=== PATIENT | female | born 1985 | race Hispanic/Latino ===

== ENCOUNTER 2019-08-11 21:31 | Inpatient (IN) | payer BC ==
[2019-08-11 22:20] VITALS: BMI 38.4
[2019-08-11] MEDS: Lactated Ringer's 1,000 ML IV SCH (23:10)
[2019-08-11] MEDS ORDERED: Penicillin G Potassium 5 MILL.UNITS VIAL ONE (23:27)
[2019-08-11] MEDS ORDERED: Butorphanol Tartrate 1 MG/ML VIAL SLOW IVP PRN (23:47)
[2019-08-11] MEDS ORDERED: NS w/ Oxytocin 10 units 500 ML IV SCH (23:47)
[2019-08-11] MEDS ORDERED: Ondansetron PF 4 MG/2 ML Vial IVP PRN (23:47)
[2019-08-11] MEDS ORDERED: Promethazine HCl 25 MG/ML VIAL IM PRN (23:47)
[2019-08-11] MEDS ORDERED: Lactated Ringer's 1,000 ML IV SCH (23:47)
[2019-08-11] MEDS ORDERED: Lidocaine 1% (PF) 30 ML VIAL SC PRN (23:47)
[2019-08-11] MEDS ORDERED: NS / Oxytocin 40 units/1000ml 1,000 ML IV PRN (23:47)
[2019-08-11] MEDS ORDERED: HYDROcodone/Acetaminophen 5/325 mg Tablet PO PRN ×2 (23:47)
[2019-08-11] MEDS ORDERED: Ibuprofen 800 MG TAB PO PRN (23:47)
[2019-08-11] MEDS ORDERED: hydrALAZINE 20 MG/ML VIAL SLOW IVP PRN (23:47)
[2019-08-11] MEDS ORDERED: Penicillin G Potassium 5 MILL.UNITS in Sodium Chloride 0.9% 100 ML IVPB SCH (23:59)
[2019-08-12 00:09] LABS: Hemoglobin 12.9 g/dL (12.0-16.0); Mean Corpuscular HGB CONC 34.5 g/dL (32.0-36.0); Mean Corpuscular Hemoglobin 35.3 pg (27.0-31.0); Mean Platelet Volume 9.3 fL (7.4-10.4); Platelet Count 113 thou/uL (130-400); RBC Distribution Width 12.9 % (11.5-14.5); Red Blood Cell (RBC) Count 3.65 mill/uL (4.20-5.40); White Blood Cell (WBC) Count 10.6 thou/uL (4.8-10.8)
[2019-08-12 00:34] LABS: Syphilis Antibody Nonreactive (Nonreactive); Syphilis Antibody Index 0.04 S/CO (<1.00 Non-Reactive)
[2019-08-12 00:35] LABS: HBSAg Index 0.17 S/CO (0-0.99); Hep B Surf Ag Non-Reactive S/CO (NonReactive)
[2019-08-12] MEDS: Penicillin G 2.5 MILL.units 2.5 MILL.UNITS in Premix Bag 1 BAG IVPB SCH ×5 (04:00→19:32)
[2019-08-12] MEDS ORDERED: Fentanyl 4 mcg/Bup 0.1% Cadd 100 ML ONE (06:47)
[2019-08-12] MEDS ORDERED: Bupivacaine 0.5% 10 ML VIAL ONE (07:16)
[2019-08-12] MEDS ORDERED: Fentanyl 100 MCG/2 ML VIAL ONE (07:16)
[2019-08-12] MEDS: Lactated Ringer's 1,000 ML IV SCH ×2 (07:58→19:34)
[2019-08-12] MEDS ORDERED: Bupivacaine 0.25% 10 ML VIAL FS SCH (08:03)
[2019-08-12] MEDS ORDERED: Fentanyl 100 MCG/2 ML VIAL I-THECAL SCH (08:03)
[2019-08-12] MEDS ORDERED: ePHEDrine/0.9% NaCl/PF SYRINGE 50 mg/10 ml SLOW IVP PRN (08:04)
[2019-08-12] MEDS ORDERED: diphenhydrAMINE 50 MG/ML VIAL IVP PRN (08:04)
[2019-08-12] MEDS ORDERED: Ondansetron PF 4 MG/2 ML Vial IVP PRN ×2 (08:04→17:46)
[2019-08-12] MEDS ORDERED: Promethazine HCl 25 MG/ML VIAL IM PRN (08:04)
[2019-08-12] MEDS ORDERED: Naloxone HCl 0.4 mg/ml Vial IVP PRN ×2 (08:04)
[2019-08-12] MEDS ORDERED: Acetaminophen 325 MG TAB PO PRN (08:04)
[2019-08-12] MEDS ORDERED: Lactated Ringer's 500 ML IV PRN (08:04)
[2019-08-12] MEDS ORDERED: Fentanyl 4 mcg/Bupivacaine 0.1% Cassette 100 ML EPIDURAL SCH (08:15)
[2019-08-12] MEDS ORDERED: Communication Order-Pharmacy FS SCH (08:15)
[2019-08-12] MEDS ORDERED: Dexamethasone 4 mg/ml Vial SLOW IVP SCH (08:30)
--- NOTE | 2019-08-12 08:32 | PDOC.LDHP ---
Labor and Delivery H&P Chief complaint: contractions HPI: Pt presents for contractions overnight. Regular contractions with cervical change noted. Hx of low platelets in , unclear ITP vs GTP. On oral prednisone 10-20mg a day for about 2 weeks. Current gestational age (weeks): 38 Due date: 08/23/19 Grav: 1 Para: 0 OB History Details: ITP vs GTP Current complications: other (low platelets, resolved at admission with oral steriods) Current medications: pre-tricia vitamins, other (prednisone 20mg a day) Previous surgical history: none Allergies/Adverse Reactions: Allergies Allergy/AdvReac Type Severity Reaction Status Date / Time No Known Allergies Allergy Verified 08/11/19 22:06 Social history: none - Physical Exam Vital signs reviewed and normal: yes General: NAD Heart: RRR Lungs: CTAB Abdomen: gravid Extremeties: no edema FHT: category 1 - Vaginal Exam cm dilated: 6 Effacement: 90% Station: -1 - OB Labs Blood type: B RH: positive Antibody Screen: negative HIV: negative RPR: negative HEPSAg: negative 1 hour GCT: positive GBS: positive Rubella: immune - Assessment L&D Assessment: term patient in labor - Plan Plan: admit to L&D, labor augmentation if indicated, GBS antibiotic prophylaxis , informed consent obtained, anesthesia consult for pain management -: A/P: Admit for labor, AROM on exam with clear fluid after abx x 2. Platelets 115. Stress dose steroids ordered, will notify nursery ITP vs GTP for follow up. FHT reassuring, anticipate .
[2019-08-12] MEDS ORDERED: NS / Oxytocin 40 units/1000ml 1,000 ML ONE ×2 (10:30→10:31)
[2019-08-12] MEDS ORDERED: Milk Of Magnesia 30 ML UDCUP PO PRN (17:46)
[2019-08-12] MEDS ORDERED: Lanolin Ointment 7 GM TUBE TOP PRN (17:46)
[2019-08-12] MEDS ORDERED: hydrALAZINE 20 MG/ML VIAL SLOW IVP PRN (17:46)
[2019-08-12] MEDS ORDERED: NS / Oxytocin 40 units/1000ml 1,000 ML IV SCH (17:46)
[2019-08-12] MEDS ORDERED: Bisacodyl 10 MG SUPP PR PRN (17:46)
[2019-08-12] MEDS: Docusate Calcium (SURFAK) 240 MG CAP PO SCH (21:28)
[2019-08-12] MEDS: Ibuprofen 800 MG TAB PO SCH (21:28)
[2019-08-12] MEDS ORDERED: HYDROcodone/Acetaminophen 5/325 mg Tablet PO PRN (22:08)
--- NOTE | 2019-08-12 22:17 | DN ---
DATE OF PROCEDURE: 08/12/2019 The patient delivered a male infant on 08/12/2019 at 1450 hours by an uncomplicated term spontaneous vaginal delivery at 38 weeks and 3 days gestation. Apgars were 8 and 9. Delivery weight was unavailable at the time of dictation. Placenta delivered spontaneously followed by Pitocin infusion. Quantitative blood loss was 675 mL. There was a small second-degree laceration repaired in the usual fashion. Dr. Ge is the delivering physician. Mother and baby are in the room, stable in the immediate . Counts were correct. Job ID: [id number]
[2019-08-13] MEDS: Penicillin G 2.5 MILL.units 2.5 MILL.UNITS in Premix Bag 1 BAG IVPB SCH (01:17)
[2019-08-13] MEDS ORDERED: Benzocaine-Menthol 82.5 ML CAN TOP PRN (05:36)
[2019-08-13] MEDS: Ibuprofen 800 MG TAB PO SCH ×3 (06:03→21:22)
--- NOTE | 2019-08-13 08:17 | PRG ---
DATE OF SERVICE: 08/13/2019 SUBJECTIVE: The patient is day 1, status post a term spontaneous vaginal delivery. The patient reports she is tolerating p.o., voiding on her own, having decreased lochia and good pain control. OBJECTIVE: VITAL SIGNS: This morning; blood pressure 109/75, temperature 98.1, pulse is 77, and respiratory rate of 18. GENERAL: She appears to be in no acute distress. She is alert and oriented, cooperative and pleasant to interact with. HEENT: Head is normocephalic and atraumatic. Fundus is firm. EXTREMITIES: Nontender. Nonedematous. LABORATORY DATA: CBC is pending. ASSESSMENT AND PLAN: The patient is a 34-year-old female, status post term spontaneous vaginal delivery at 37 weeks for gestational thrombocytopenia, on prednisone. The patient will continue with her prednisone 20 mg daily and can follow up with her primary OB for taper. We will anticipate discharge tomorrow. Job ID: [id number]
[2019-08-13] MEDS ORDERED: Adacel (T-DAP) 0.5 ML SYRINGE IM ONE (09:00)
[2019-08-13 09:01] LABS: #Eosinphils 0.1 thou/uL (0.0-0.7); #Lymphocytes 2.6 thou/uL (1.20-3.40); #Monocytes 0.7 thou/uL (0.11-0.59); #Neutrophils 10.3 thou/uL (1.40-6.50); %Eosinophils 0.5 % (0.0-10.0); %Lymphocytes 18.8 % (21.0-51.0); %Monocytes 5.2 % (0.0-10.0); %Neutrophils 75.6 % (42.0-75.0); Hemoglobin 9.9 g/dL (12.0-16.0); Mean Corpuscular HGB CONC 35.9 g/dL (32.0-36.0); Mean Corpuscular Hemoglobin 37.5 pg (27.0-31.0); Mean Platelet Volume 8.7 fL (7.4-10.4); Platelet Count 62 thou/uL (130-400); Platelet Morphology Comment Appears Decreased; RBC Distribution Width 12.9 % (11.5-14.5); RBC Morphology Normal; Red Blood Cell (RBC) Count 2.65 mill/uL (4.20-5.40); White Blood Cell (WBC) Count 13.6 thou/uL (4.8-10.8)
[2019-08-13] MEDS: Ferrous Sulfate 325 MG TAB PO SCH ×2 (09:39→18:48)
[2019-08-13] MEDS: Docusate Calcium (SURFAK) 240 MG CAP PO SCH ×2 (10:27→21:22)
[2019-08-13] MEDS: Prenatal Vitamin 1 TAB PO SCH (10:27)
[2019-08-13] MEDS: predniSONE 20 MG TAB PO SCH (10:27)
[2019-08-13 18:48] VITALS: TEMP 98.5
[2019-08-14] MEDS: Ibuprofen 800 MG TAB PO SCH ×2 (05:33→14:28)
[2019-08-14 06:46] LABS: #Eosinphils 0.1 thou/uL (0.0-0.7); #Monocytes 0.6 thou/uL (0.11-0.59); #Neutrophils 7.8 thou/uL (1.40-6.50); %Basophils 0.2 % (0.0-1.0); %Eosinophils 0.9 % (0.0-10.0); %Lymphocytes 26.2 % (21.0-51.0); %Monocytes 5.4 % (0.0-10.0); %Neutrophils 67.3 % (42.0-75.0); Hemoglobin 9.5 g/dL (12.0-16.0); Mean Corpuscular HGB CONC 34.5 g/dL (32.0-36.0); Mean Corpuscular Hemoglobin 35.9 pg (27.0-31.0); Mean Platelet Volume 8.8 fL (7.4-10.4); Platelet Count 61 thou/uL (130-400); RBC Distribution Width 12.9 % (11.5-14.5); Red Blood Cell (RBC) Count 2.65 mill/uL (4.20-5.40); White Blood Cell (WBC) Count 11.5 thou/uL (4.8-10.8)
--- NOTE | 2019-08-14 06:49 | PDOC.PP ---
Post Progress Note Post Day #: 2 Subjective: Patient doing well. No significant overnight events. Patient denies N/V, chest pain, shortness of breath, palpitations. Lochia minimal. PO intake tolerated: yes Flatus: yes Ambulation: yes Vital Signs (12 hours) Temp Pulse Resp BP Pulse Ox 08/13/19 19:55 96 08/13/19 19:53 98.5 F 93 18 132/74 96 Weight Weight 98.43 kg - Physical Examination General: NAD Cardiovascular: RRR Respiratory: non-labored breathing Abdominal: + bowel sounds, lochia (minimal), no distention, appropriately TTP Fundus firm & at: below umbilicus Neurological: no gross focal deficits Psychiatric: A&Ox3, normal affect Result Diagrams: 08/14/19 06:25 Additional Labs: Post Labs Blood Type B POSITIVE 08/12/19 00:58 Hep Bs Antigen Non-Reactive S/CO (NonReactive) 08/11/19 23:20 (1) Term delivered Code(s): O80 - ENCOUNTER FOR FULL-TERM UNCOMPLICATED DELIVERY Status: Acute (2) Thrombocytopenia Code(s): D69.6 - THROMBOCYTOPENIA, UNSPECIFIED Status: Acute - Assessment/Plan Routine PP care - Meeting milestones - BP's well controlled - Rh positive Thrombocytopenia - Treated as ITP - On steroids, to continue current dose and taper as outpatient - 113 --> 62 --> 61 Dispo: Plan to d/c home today. Follow up with primary OB physician as discussed. Addendum - Attending - Attending Attestation Date/Time: 08/14/19 [id number] I personally evaluated the patient and discussed the management with Dr. Vences. I agree with the Assessment and Plan documented above.
[2019-08-14 07:52] VITALS: BP 100/55
[2019-08-14] MEDS: Prenatal Vitamin 1 TAB PO SCH (08:13)
[2019-08-14] MEDS: Ferrous Sulfate 325 MG TAB PO SCH ×2 (08:13→17:42)
[2019-08-14] MEDS: Docusate Calcium (SURFAK) 240 MG CAP PO SCH (08:13)
[2019-08-14] MEDS: predniSONE 20 MG TAB PO SCH (08:14)
--- NOTE | 2019-08-15 14:19 | DIS ---
DATE OF ADMISSION: 08/11/2019 DATE OF DISCHARGE: 08/14/2019 RESIDENT: Yadi Falcon, DO DISCHARGE ATTENDING: Alonso Armas MD PROCEDURES: 1. Spontaneous vaginal delivery. 2. Second-degree laceration, status post repair. 3. Gestational thrombocytopenia versus immune thrombocytopenic purpura. HISTORY OF PRESENT ILLNESS/HOSPITAL COURSE: This is a 34-year-old G1, P0, who presented to Labor and Delivery with contractions on the night of 08/11/2019. The patient has a history of low platelets in and it is unclear whether this is gestational thrombocytopenia versus ITP. She has been on oral prednisone 10 to 20 mg a day for two weeks. The patient delivered a male on 08/12/2019 at 1450 via uncomplicated term spontaneous vaginal delivery at 38 and 3 weeks gestation. Apgars were 8 and 9. Quantitative blood loss was noted to be 675 mL. A small second-degree laceration was repaired in the usual fashion. Delivery was accomplished by Dr. Ge. Mom did well in the period. Her platelets on admission were noted to be 113 and they downtrended to 62 after delivery. However, on 08/14, platelets were stable at 61. The patient was instructed to continue her 20 mg dose of prednisone and to taper off via recommendations of her primary OB physician. The patient was understanding of the plan. The patient was ready for discharge home on 08/14/2019 after uncomplicated course. DISPOSITION: Stable. DISCHARGE INSTRUCTIONS: 1. Location: Home. 2. Activity: Pelvic rest x6 weeks. 3. Medications, ibuprofen, ferrous sulfate, docusate. 4. Diet: Regular. 5. Followup: The patient is to follow up with Dr. Brown in 2 weeks of discharge from the hospital. She is to have her steroids tapered per primary OB physician's recommendations at that time. Job ID: [id number]
--- NOTE | 2019-08-16 21:35 | PQF ---
[employer] Reports Winform ViewerYAGUARACUINES WALTON PAM ACEVEDO MD [id number] CLINICAL DOCUMENTATION CLARIFICATION FORM: POST DISCHARGE Addendum to original discharge summary date: 08/15/19 Late entry note date: 08/19/19 DATE: 08/16/2019 ATTN:PAM ACEVEDO MD Please exercise your independent, professional judgment in responding to the clarification form. Clinical indicators are provided on the bottom of this form for your review Please check appropriate box(s): [x ] Acute blood loss anemia [ ] Post-op anemia related to acute blood loss [ ] Chronic Anemia [ ] Other diagnosis [ ] Unable to determine In addition, please specify: Present on Admission (POA): [ ] Yes [ ] No [ ] Unable to determine For continuity of documentation, please document condition throughout progress notes and discharge summary. Thank You. CLINICAL INDICATORS - SIGNS / SYMPTOMS / LAB HGB 12.9 on 08/11 and 9.5 on 08/14 - Documented in Laboratory HCT 37.4 on 08/11 and 27.6 on 08/14 - Documented in Laboratory BP 114/54 on 08/13 and 100/55 on 08/14 - Documented in Vital Signs Thrombocytopenia - Documented in 08/14 Post PNs on 08/14 by Yadi Falcon [employer] Second degree Laceration - Documented in Delivery Note on 08/12 by PAM ACEVEDO MD QBL 675 ml - Documented in Delivery Note on 08/12 by PAM ACEVEDO MD Vaginal Delivery TREATMENTS: Ferrous sulfate 325 mg - Medication report (This form is maintained as a part of the permanent medical record) 2014 [employer]. All Rights Reserved [employer] Winform [email or web address] [not provided] MTDD
== END 2019-08-14 17:55 | disposition home or self-care (01) | DRG 806 ==
LOC: L&D/OP 21:31 → L&D 22:57 → 3SW 08-12 18:20
PROVIDERS: ADMIT Obstetrics & Gynecology; ATTEND Obstetrics & Gynecology
PROC: 10907ZC Drainage of Amniotic Fluid, Therapeutic from Products of Conception, Via Natural or Artificial Opening (ICD-10-PCS; principal; 2019-08-11)
PROC: 10E0XZZ Delivery of Products of Conception, External Approach (ICD-10-PCS; 2019-08-11)
DX: O99.824 Streptococcus B carrier state complicating childbirth (principal); D69.3 Immune thrombocytopenic purpura; Z37.0 Single live birth; D62 Acute posthemorrhagic anemia; O70.1 Second degree perineal laceration during delivery; O99.12 Other diseases of the blood and blood-forming organs and certain disorders involving the immune mechanism complicating childbirth; Z3A.38 38 weeks gestation of pregnancy; O90.81 Anemia of the puerperium
CPT/HCPCS: 36415; 51702; 85025; 85027; 86780; 86850; 86900; 86901; 87340; 90715; 99285; J0595; J1100; J2540; J2590; J3010; J3490; J7512